=== PATIENT | female | born 1970 | race Caucasian/White ===

== ENCOUNTER 2024-06-06 13:21 | Outpatient (CLI) | payer OTHER, SELFPAY ==
--- NOTE | ~2024-06-06 | US_ITS ---
US pelvic complete w TV Ordering provider: Marj Bella APRN History: . N93.9 - Abnormal uterine and vaginal bleeding, unspecified . Comparison: None. Technique: Transabdominal and endovaginal ultrasound of the pelvis (Doppler ultrasound interrogation techniques used as needed for this exam.) FINDINGS: CERVIX: Normal. UTERUS: Measures 9.3x 4.3x 5.7 cm in length which is within normal limits and is anteverted. Smaller fibroid measuring 1 x 1 x 0.9 cm is seen posteriorly. Another one seen anteriorly measuring 0.7 x 0. 5 x 0.9 cm. ENDOMETRIUM: Normal in thickness measuring 6 mm. No endometrial masses, cysts or fluid. CUL DE SAC: No free fluid. RIGHT OVARY: Normal in size measuring 2.9x 2.7x 3.5 cm. Normal echotexture. Doppler vascular flow pre sent. Multiple follicles with the largest measuring 2 cm. LEFT OVARY: Normal in size measuring 1.8x 2.4x 2.8 cm. Normal echotexture. Doppler vascular flow pres ent. 0.9 cm follicle is noted. ADNEXA: Normal. No mass. IMPRESSION: Otherwise, normal pelvic ultrasound. Reviewed, dictated and finalized at location A.
== END 2024-06-06 13:22 | disposition home or self-care (01) ==
LOC: MICIMG 13:21
PROVIDERS: PCP Nurse Practitioner Family; Visit Provider Nurse Practitioner Family
DX: N93.9 Abnormal uterine and vaginal bleeding, unspecified (principal)
CPT/HCPCS: 76830; 76856

== ENCOUNTER 2024-08-12 07:10 | Outpatient (CLI) | payer OTHER, SELFPAY ==
[2024-08-12 08:16] LABS: Hematocrit 35.8 % (37.0-47.0); Hemoglobin 11.6 g/dL (12.0-15.0)
== END 2024-08-12 07:11 | disposition home or self-care (01) ==
LOC: ANHLAB 07:12
PROVIDERS: Referring Provider Anesthesiology; Visit Provider Obstetrics & Gynecology
DX: N92.0 Excessive and frequent menstruation with regular cycle (principal); N93.9 Abnormal uterine and vaginal bleeding, unspecified
CPT/HCPCS: 36415; 85014; 85018; 86850; 86900; 86901

== ENCOUNTER 2024-08-17 00:52 | Day surgery (SDC) | payer OTHER, SELFPAY ==
[2024-08-11 08:20] VITALS: BMI 21.6
--- NOTE | 2024-08-11 08:29 | PC.NURSE ---
Report to the Outpatient Waiting Room, entrance under the green pavilion located off [facility], at time _0600_ on date _[id number]_. Planned Procedure Time: _0730_.? Time changes happen often and if your time is changed the preop area will call you the afternoon before. - You and your visitor will be asked to self-screen and do not enter if you have any COVID symptoms. Please call surgeon if you need to reschedule. - A mask is optional within the hospital at this time. Patients may have clear liquids (water, carbonated beverages, clear teas, apple juice) until 3 hours prior to surgery with a maximum of 20 ounces. - No food from midnight until time of surgery and no smoking, or chewing tobacco (or any form of nicotine). No chewing gum, candy or mints. Take only the following medications with a SIP of water on the morning of surgery: ___Flonase if needed.___ DO NOT STOP ANY OF YOUR OTHER PRESCRIPTION MEDICATIONS PRIOR TO SURGERY EXCEPT THE FOLLOWING Hold all vitamins and supplements for 3 days per anesthesiologist. Medications to discontinue per physician ____Patient is holding Meloxicam and Ketorolac____ Date to take last iaxa__[id number]__ Please no make-up, nail thai, hairspray, perfume, deodorant, or body powder the day of surgery.? No jewelry (including any body piercings) or valuables the day of surgery, leave them at home.? Please take a shower or bath the night before, or the morning of, surgery with an antibacterial soap.? Wear comfortable, loose fitting clothing.? - Jewelry must be removed prior to entering the operating room.? Rings and piercings that are not removed may be cut off. - The hospital will not accept responsibility for valuables.? - Please leave all valuables, including medications, at home the day of surgery. If you are going home after surgery, a licensed lyft driver must drive you home.? - NO public transportation without another adult if you receive anesthesia. - We recommend that an adult stay with you for 24 hours following discharge. - We also recommend that you do not drive, make important decision, drink alcoholic beverages, or take any drugs that were not prescribed by your health care provider for at least 24 hours after your discharge time. Follow any additional instructions given to you from your surgeon. Telephone instructions given to __Tina__and asked if any additional questions and then verbalized understanding. Patient advised to call surgeon office or pre surgery nurse liaison [phone] if any additional questions.
[2024-08-17] VITALS (12 sets, daily range): BP systolic 80–108; BP diastolic 45–75; PULSE 61–74; RESP 12–20; TEMP 36.1–36.5; O2SAT 98–100
--- OUTSIDE RECORDS SUMMARY | 2024-08-17 00:54 | XMS_ITS | Encounter Summary ---
Author Organization [employer] Address [address] [place] [address] Care Team Providers Care Cementer Helper Name Role Phone Crystal Noguera MD Primary Care Provider [phone] Encounter Details Date Type Department Care Team (Late st Contact Info) Description 04/06/2003 Outpatient Historical [facility] [address] [place] [address] Crystal Nogurea MD [address] [place] [phone] Social History Tobacco Use Types Packs/Day Years Used Date Smoking Tobacco: Never Assessed Comments Unknown Sex and Gender Information Value Date Recorded Sex Assigned at Not on file 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
--- OUTSIDE RECORDS SUMMARY | 2024-08-17 00:54 | XMS_ITS | Encounter Summary ---
Author Organization [employer] Address [address] [place] [address] Care Team Providers Care Certified Driver Examiner Name Role Phone Crystal Noguera MD Primary Care Provider [phone] Encounter Details Date Type Department Care Team (Latest Contact Info) Description 09/12/2003 Outpatient [facility] [address] [place] [address] Crystal Noguera MD [address] [place] [phone] ABDOMINAL PAIN UNSPEC SITE (Primary Dx) Social History Tobacco Use Types Packs/Day Years Used Date Smoking Tobacco: Never Assessed Comments Unknown Sex and Gender Information Value Date Recorded Sex Assigned at Not on file 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
--- OUTSIDE RECORDS SUMMARY | 2024-08-17 00:54 | XMS_ITS | Encounter Summary ---
Author Organization [facility] Address [address] [place] [address] Care Team Providers Care Numerical Control Router Operator Name Role Phone Vito Choi MD Primary Care Provide r Tracy Wagoner DNP Unavailable [phone] Aleksandar Coffey MD Unavailable [phone] Reason for Referral * Consultation (Urgent) - Closed Specialty Diagnoses / Procedures Referred By Concha ladd Referred To Contact Gynecology Diagnoses Menorrhagia with irregular cycle Vito Choi MD [address] [place] [address] Phone: tel: fax: [facility] [address] [address], [address] Office [address] [place] [address] Phone: tel: fax: Referral ID Status Reason Start Date Expiration Date V isits Requested Visits Authorized [id number] Closed Specialty Services Required 05/30/2024 06/29/2025 1 1 Question Answer Please select the performing region: [facility] [[id number]] Please select the performing department: [facility] [[id number]] # of visits: 1 Encounter Details Date Type Department Care Team (Late st Contact Info) Description 05/30/2024 Nurse Triage [facility] [address] [place] [address] [place] [address] [facility] [address] [place] [address] Menorrhagia with irregular cycle (Primary Dx) Social History Tobacco Use Types Packs/Day Years Used Date Smoking Tobacco: Never Smokeless Tobacco: Never Alcohol Use Standard Drinks/Week Comments Not Currently 0 (1 standard drink = 0.6 oz pur e alcohol) AUDIT-C Answer Date Recorded Q1: How often do you have a drink containing alc ohol? Monthly or less 05/29/2020 Q2: How many drinks containi ng alcohol do you have on a typical day when you are drinking? 1 or 2 05/29/2020 Frequency of Binge Drinking Not on file 05/17 PHQ-2 Answer Date Recorded PHQ-2 Total Score (If total score is 3 or more points, staff should administer the PHQ-9) 0 04/21/2024 Personal Safety Answer Date Recorded Have you ever been in or are you currently in a harmful physical or emotional relationship or is someone making you feel afraid or unsafe? Denies 04/29/2024 Comments No Sex and Gender Information Value Date Recorded Sex Assigned at Not on file Legal Sex Female 11:59 AM LINE TENDER FLAKEBOARD Gender Identity Not on file Sexual Orientation Not on file documented as of this encounter Miscellaneous Notes * Telephone Encounter - Peg Mattson MA - 05/30/2024 4:22 PM CDT Pt informed * Telephone Encounter - Vito Choi MD - 05/30/2024 3:23 PM CDT Let her know I placed a referral to our Gynecology Clinic here at [facility]. If they can not get her in with a suitable timeframe I recommend she consult with her insurance company to find out what other gynecology providers are in network. Then she will simply have to start making calls to see if anywhere else can get her in sooner. * Telephone Encounter - Lizy Ortiz RN - 05/30/2024 10:06 AM CDT Joi Ashley reports ongoing menses for atleast the last 15 days. Flow is heavy off and on. Pt is very concerned as her mother had to have a hysterectomy very early on related to similar issues with prolonged menses. Pt is requesting REAL ESTATE LEGAL ASSISTANT referral lisette and for one that can get her in sooner rather than delay as she is very worried.Pt cont to have increased tiredness and dizziness. DISPO: Call PCP now Reviewed care options with Joi Ashley requesting PCP send referral via [facility] or call back at [phone] for further assist. Reason for Disposition [1] Follow-up call from patient regarding patient's clinical status AND [2] information urgent Protocols used: PCP Call - No [id number] * Telephone Encounter - Lizy Ortiz RN - 05/30/2024 9:56 AM CDT Regarding: menstrual cycle ----- Message from May sent at 05/30/2024 9:20 AM CDT ----- Symptom Based Call Chief Complaint(s): menstrual cycle Duration: 15 days What type of symptom(s) is the patient experiencing? Non-Emergent. Is this a new or reoccurring symptom(s)? new What have you tried to help your symptom(s)? Nothing Why was appointment not scheduled? Requesting advice from clinical stationary steam engineer. Additional Comments: normal cramps and she does have blood clots present Does message need to be routed? Yes-Action Needed documented in this encounter Plan of Treatment Upcoming Encounters Date Type Department Care Team (Late st Contact Info) Description 01/11/2025 8:30 AM LINE TENDER FLAKEBOARD Hospital Encounter [facility] [address] [place] [address] [address], [address] [place] [address] 01/11/2025 8:30 AM LINE TENDER FLAKEBOARD - 01/11/2025 9:00 AM LINE TENDER FLAKEBOARD Surgery [address] [address] [address], [address] [place] [address] COLONOSCOPY Scheduled Procedures Name Priority Associated Diagnoses Date/Ti me COLONOSCOPY Encounter for screening colonoscopy 01/11/2025 8:30 AM LINE TENDER FLAKEBOARD Scheduled Referrals Name Type Priority Associated Diagnoses Order Schedule Ambulatory referral to Gynecology Outpatient Referral Urgent Menorrhagia with irregular cycle 1 Occurrences starting 05/30/2024 until 05/30/2025 documented as of this encounter Visit Diagnoses Diagnosis Encounter for screening colonoscopy- Primary Menorrhagia with irregular cycle- Primary Encounter for screening colonoscopy documented in this encounter Additional Health Concerns Infection Onset Date Last Indicated Resolved Time COVID: Suspected 07/21/2024 07/21/2024 07/21/2024 3:42 PM CDT documented as of this encounter Care Teams Numerical Control Router Operator Relationship Specialty [place] [id number] [address] PCP - General Family Medicine 12/13/19 Tracy Wagoner DNP [address] [facility] [address] [place] [address] Nurse Practitioner Neurology 03/06/20 [place] [address] [address] Consulting Physician Otolaryngology 04/07/22 documented as of this encounter
--- OUTSIDE RECORDS SUMMARY | 2024-08-17 00:54 | XMS_ITS | Clinical Summary ---
Author Organization [facility] Address [address] Nuñez: [place] [address] Care Team Providers Care City Sanitarian Name Role Phone Crystal Noguera MD Primary Care Provider [phone] Allergies Active Allergy Reactions Criticality Noted Date Comments Sulfa (Sulfonamide Antibiotics) Rash Low 07/18 Medications metFORMIN (GLUCOPHAGE) 500 mg tablet take one tablet by mouth twice daily 60 Tablet 2 06/05/2022 8:43 AM CDT 3 Active ergocalciferol (Vitamin D2) 50,000 unit capsule Take 1 Capsule (50,000 Units) by mouth every 7 days. 4 Capsule 1 07/04/2022 12:23 PM CDT 3 Active tirzepatide (Mounjaro) 5 mg/0.5 mL Pen Injector Inject 5 mg by subcutaneous injection every 7 days. 2 mL 09/04/2022 11:26 AM CDT 3 Active tirzepatide (Mounjaro) 7.5 mg/0.5 mL Pen Injector Inject 0.5 mL (7.5 mg) by subcutaneous injection every 7 days. 2 mL 3 04/17/2023 3:21 PM INTEGRATED MARKETING SPECIALIST 3 Active tirzepatide (Mounjaro) 5 mg/0.5 mL Pen Injector Inject 5 mg by subcutaneous injection every 7 days. 2 mL 3 01/04/2024 1:52 PM INTEGRATED MARKETING SPECIALIST 4 Active tirzepatide (Mounjaro) 5 mg/0.5 mL Pen Injector Inject 5 mg by subcutaneous injection every 7 days. 2 mL 3 11/10/2023 11:29 AM CDT 4 Active tirzepatide (Mounjaro) 5 mg/0.5 mL Pen Injector Inject 0.5 mL (5 mg) by subcutaneous injection every 7 days. 2 mL 3 04/26/2024 11:56 AM CDT 4 Active tirzepatide (Mounjaro) 5 mg/0.5 mL Pen Injector Inject 0.5 mL (5 mg) by subcutaneous injection every 7 days. 2 mL 3 05/19/2024 9:31 AM CDT 5 Active Encounters Date Type Department Care Team Description 08/02/2024 External Device Data [facility] ABSTRACTION Provider, Abstract 07/07/2024 External Device Data [facility] ABSTRACTION Provider, Abstract 07/06/2024 External Device Data [facility] ABSTRACTION Provider, Abstract 07/05/2024 External Device Data [facility] ABSTRACTION Provider, Abstract 05/31/2024 External Device Data [facility] ABSTRACTION Provider, Abstract from Last 3 Months Social History Tobacco Use Types Packs/Day Years Used Date Smoking Tobacco: Never Assessed Comments Unknown Sex and Gender Information Value Date Recorded Sex Assigned at Not on file Legal Sex Female 4:58 AM INTEGRATED MARKETING SPECIALIST Gender Identity Not on file Sexual Orientation Not on file Plan of Treatment Health Maintenance Due Date Last Done Comments DTAP/TDAP/TD VACCINES (1 - Tdap) 07/09/1991 HEPATITIS B VACCINES (1 of 3 - 19+ 3-dose series) 06/17 HPV/Cotest (21-29) 1993 CERVICAL CANCER SCREENING 2002 HPV/Cotest (30-65) 2002 PAP SMEAR 2002 BREAST CANCER SCREENING 2012 COLORECTAL SCREENING 2017 Colorectal Cancer Screening 2017 FIT-DNA Q 3 years 2017 FIT/FOBT Q 1 year 2017 Flex Sig/CT Colonography Q 5 years 2017 ZOSTER VACCINE (1 of 2) 2022 INFLUENZA VACCINE (#1) 2023 Insurance RX [facility] [employer] Commercial [[id number] Care Teams City Sanitarian Relationship Specialty Start Date End Date Crystal Noguera MD [address] [place] [address] PCP - General 09/12/03
--- OUTSIDE RECORDS SUMMARY | 2024-08-17 00:54 | XMS_ITS | Referral Summary ---
Author Organization [facility] Address [address] [place] [address] Care Team Providers Care Dividend Deposit Entry Clerk Name Role Phone Vito Choi MD Primary Care Provide r Tracy Wagoner DNP Unavailable [phone] Aleksandar Coffey MD Unavailable Encounters Date Type Department Care Team Description 07/21/2024 3:15 PM CDT Office Visit [facility] [place] [address] [place] [address] Iris Koenig, YANY Acute nasopharyngitis (Primary Dx) 06/27/2024 Orders Only [facility] Orthopedics and Sports Medicine at [address] [place] [address] Kaylee Lopez PA 06/24/2024 Telephone [facility] [address] [place] [address] Olivia Rivers 06/09/2024 Results Follow[facility]Up [facility] at [address] [place] [address] Vito Choi MD CBC with auto differential, Comprehensive metabolic panel, Lipid panel, Additional followed-up results: 11 06/09/2024 3:15 PM CDT Office Visit [facility] Orthopedics and Sports Medicine at [address] [address] Zia Tolbert MD Adhesive capsulitis of left shoulder (Primary Dx) 06/06/2024 9:08 AM CDT - 06/06/2024 11:59 PM CDT Hospital Encounter [address] [address] Disorder of left rotator cuff Discharge Disposition: Discharge to home or self care 05/30/2024 Nurse Triage Family [facility] at [address] [place] [address] Vito Choi MD Menorrhagia with irregular cycle (Primary Dx) 05/30/2024 3:30 PM CDT Office Visit [facility] Orthopedics and Sports Medicine at [address] [address] Zia Tolbert MD Disorder of left rotator cuff (Primary Dx) 05/26/2024 Telephone [facility] Gastroenterology at [address] [place] [address] Armani Troncoso DO 05/24/2024 Telephone [facility] Gastroenterology at [address] [place] [address] Laci Aleman MD 05/20/2024 Telephone Family Care at [address] [address] Vito Choi MD Call Back 05/19/2024 11:40 AM CDT Lab [address] [address] Dizziness; Pure hypercholesterolemia; Anemia, unspecified type; Situational anxiety 05/19/2024 8:00 AM CDT Office Visit Family Care at [address] [address] Vito Choi MD Annual physical exam (Primary Dx); Colon cancer screening; Dizziness; Migraine with aura and without status migrainosus, not intractable; Seasonal allergies; Gastroesophageal reflux disease, unspecified whether esophagitis present; Situational anxiety; Pure hypercholesterolemia; Anemia, unspecified type; Abnormality of lung on chest x-ray from Last 3 Months Allergies Active Allergy Reactions Criticality Noted Date Comments Sulfa (Sulfonamide Antibiotics) Rash Medium Itch, redness, rash Medications cetirizine (ZyrTEC) 10 mg tablet Take 1 tablet (10 mg total) by mouth daily 2 018 Active fluticasone (FLONASE) 50 mcg/actuation nasal spray Administer 1 spray into each nostril daily Active rizatriptan MEDICAL RADIATION DOSIMETRIST (MAXALT-MEDICAL RADIATION DOSIMETRIST) 10 mg disintegrating tabletIndications: Migraine Take 1 tablet (10 mg total) by mouth once as needed for migraine May repeat in 2 hours if unresolved. Do not exceed 30 mg in 24 hours. 27 tablet 3 023 Active hydrOXYzine (ATARAX) 25 mg tablet Take 1 tablet (25 mg total) by mouth every 8 (eight) hours as needed for anxiety 90 tablet 2 024 Active Mounjaro 5 mg/0.5 mL pen injector Inject 1 mL (10 mg total) under the skin once a week 023 Active galcanezumab-gnlm (Emgality Pen) 120 mg/mL pen injectorIndication s:Migraine with aura and without status migrainosus, not intractable INJECT 120 MG UNDER THE SKIN EVERY 30 (THIRTY) DAYS 1 mL 11 024 Active metoclopramide (REGLAN) 10 mg tablet Take 1 tablet (10 mg total) by mouth 2 (two) times a day as needed (dizziness/he adache) for up to 20 doses 20 tablet 025 Active acetaminophen (TYLENOL) 500 mg tablet Take 1 tablet (500 mg total) by mouth every 6 (six) hours as needed for pain 30 tablet 1 025 Active PHENobarbitaL 32.4 mg tablet 5 025 Active ferrous sulfate 325 mg (65 mg of elemental iron) tabletIndications: Iron Deficiency Anemia Take 1 tablet (325 mg total) by mouth daily with breakfast 90 tablet 3 025 Active cholecalciferol (VITAMIN D-3) 50,000 unit capsule Take 1 capsule (50,000 Units total) by mouth once a week 12 capsule 3 Active meloxicam (MOBIC) 15 mg tablet Take 1 tablet (15 mg total) by mouth daily Take with food 30 tablet Active methylPREDNISolone (MEDROL DOSEPACK) 4 mg DosepackIndication s:Acute nasopharyngitis Take as directed on package 1 packet Active montelukast (SINGULAIR) 10 mg tabletIndications: Acute nasopharyngitis Take 1 tablet (10 mg total) by mouth nightly 30 tablet 025 2025 Active methylPREDNISolone (Medrol, Anjum,) 4 mg Dosepack Take as directed on package 1 packet 025 2024 Discontinued Active Problems Problem Noted Date Diagnosed Date Encounter for screening colonoscopy 05/26/2024 Seasonal allergies 05/19/2024 Assessment & Plan (05/19/2024 1:03 PM CDT): Controlled/stable, continue current management Continue Zyrtec and Flonase for symptom management Also hydroxyzine p.r.n. Anemia 05/19/2024 Assessment & Plan (05/19/2024 1:03 PM CDT): Patient notes a baseline anemia for many years However, during that recent ED visit there was progression of this anemia with a hemoglobin of 9.6 I recommend we repeat the level If anemia is persistent she may need more aggressive iron replacement as it appears to be an iron-deficiency anemia - possible IV iron We will also await the results of the colonoscopy to see if there is any lower GI bleeding Upper endoscopy may also be necessary in the future to rule out upper GI bleeding Vestibular migraine 04/07/2022 Imbalance 04/01/2022 Pure hypercholesterolemia 01/02/2022 Assessment & Plan (05/19/2024 1:02 PM CDT): The 10-year ASCVD risk score (Kailee VARGHESE, et al., 2019) is: 0.9% ASCVD risk remains extremely low Continue monitoring of lipid panel and consider statin therapy if it ever goes above 10% Dizziness 09/06/2020 Assessment & Plan (05/19/2024 1:03 PM CDT): Although dizziness has a broad differential diagnosis, I reassured the patient that all of our workup thus far does not indicate a primary cardiac issue or intracranial problem Vestibular dysfunction could also be present, although the patient did see ENT in the past and was not noted to have Meniere's disease or other vestibular issues At this point the leading diagnoses are migraine variants, anxiety or less likely autonomic dysfunction such as POTS We will repeat some lab work including hormonal testing The patient could be perimenopausal which could be contributing to some of the symptoms Otherwise I recommend the patient continue to follow-up with Neurology and consider a second opinion from a neurologist with more expertise in treating migraines such as the [facility] headache clinic Additional consultation with Cardiology or ENT would also be reasonable Situational anxiety 09/06/2020 Assessment & Plan (05/19/2024 1:03 PM CDT): Dizziness could be psychosomatic from anxiety Continue hydroxyzine p.r.n. We could also consider cautious use of benzodiazepine therapy prn, although I would prefer to avoid this if possible Post-operative state 06/13/2020 GERD (gastroesophageal reflux disease) Assessment & Plan (05/19/2024 1:03 PM CDT): Controlled/stable, continue current management Assessment & Plan (06/22/2019 1:14 PM CDT): Pt was switched from omeprazole to pantoprazole and doing really well on this. No longer having regurgitation or belching. Continue this regimen. Will re-eval in about 6 months and consider trying to reduce dose or stop this medication if possible. Pt working on losing weight and avoiding things that will cause GERD. Migraine with aura and witho ut status migrainosus, not intractable 11/16/2017 Assessment & Plan (05/19/2024 1:03 PM CDT): Controlled/stable, continue current management Follow up with Neurology Continue NSAID therapy, Reglan p.r.n. + Emgality for maintenance and Maxalt p.r.n. for abortive therapy Resolved Problems Problem Noted Date Diagnosed Date Resolved Date Unilateral inguinal hernia w ithout obstruction or gangrene 05/16/2020 09/06/2020 Overview (05/16/2020): Added automatically from request for surgery [id number] Belching 05/03/2019 06/22/2019 Assessment & Plan (06/22/2019 1:14 PM CDT): Resolved with pantoprazole daily. Assessment & Plan (05/03/2019 2:41 PM CDT): Pt says this has been going on for years. Pt currently on omeprazole daily. She thinks it may help with regurgitation but isn't sure if it helps with belching. Will try switching to pantoprazole daily and have her use gas-x as needed before and/or after meals. We discussed diet and she was given handout on things to avoid the help prevent less belching/gas. Regurgitation of stomach contents 05/03/2019 09/06/2020 Assessment & Plan (05/03/2019 2:38 PM CDT): Occasionally occurs when she belches. She denies N/V. Chronic idiopathic constipation 05/03/2019 09/06/2020 Assessment & Plan (06/22/2019 1:15 PM CDT): Pt says when she has her menstrual cycle, she doesn't have any issues with constipation. When not on her menstrual cycle, she uses Miralax daily and this helps have normal, daily BM's. Continue current regimen. Assessment & Plan (05/03/2019 2:41 PM CDT): Pt says she goes every 3-4 days. She has had issues with constipation all my life. She uses Miralax prn usually after about 3 or 4 days of no BM. Advised patient to use about every other day for constipation as this can cause more issues with gas. Immunizations Immunization Administration Dates Next Due Influenza, Quadrivalent, Spl it, Intramuscular 01/25/2019 Influenza, Quadrivalent, Spl it, Preservative Free, Intramuscular 12/04/2021,03/10/2018 Influenza, Unspecified 09/17/2023(Deferr ed: Patient Refused),05/19/2023(Deferred: Patient Refused),11/17/2019 Pfizer SARS-CoV-2 Monovalent Vaccination (12+ Yrs) PURPLE 06/04/2020,05/12/2020 Tdap 03/10/2018 Social History Tobacco Use Types Packs/Day Years Used Date Smoking Tobacco: Never Smokeless Tobacco: Never Tobacco Cessation:Counseling Given: No Alcohol Use Standard Drinks/Week Comments Not Currently [...] on file Legal Sex Female 11:59 AM SPORTS COMMENTATOR Gender Identity Not on file Sexual Orientation Not on file Last Filed Vital Signs Vital Sign Reading Time Taken Comments Blood Pressure 100/60 07/21/2024 3:19 PM CDT Pulse 70 07/21/2024 3:19 PM CDT Temperature 36.6 C (97.8 F) 07/21/2024 3:19 PM CDT Respiratory Rate 16 07/21/2024 3:19 PM CDT Oxygen Saturation 99% 07/21/2024 3:19 PM CDT Inhaled Oxygen Concentration - - Weight 50.8 kg (112 lb) 07/21/2024 3:19 PM CDT Height 152.4 cm (5') 07/21/2024 3:19 PM CDT Body Mass Index 21.87 07/21/2024 3:19 PM CDT Plan of Treatment Upcoming Encounters Date Type Department Care Team (Late st Contact Info) Description 01/11/2025 8:30 AM SPORTS COMMENTATOR Hospital Encounter [facility] [place] [address] [place] [address] Armani Troncoso, [address] [place] [address] 01/11/2025 8:30 AM SPORTS COMMENTATOR - 01/11/2025 9:00 AM SPORTS COMMENTATOR Surgery [address] [address] Armani Troncoso, [address] [place] [address] COLONOSCOPY Scheduled Procedures Name Priority Associated Diagnoses Date/Ti me COLONOSCOPY Encounter for screening colonoscopy 01/11/2025 8:30 AM SPORTS COMMENTATOR Medical Devices Implanted Type Area Box Stacker Device Identifier Shelf Expiration Date Model / Serial / Lot [employer]/C R Bard [id number] Mesh Surg 3dmax [id number] Left Mid Large Inguinal Hernia - [id number] Implanted:Qty : 1 on 05/29/2020 by Dylan Moore MD at [facility] Left: Inguinal [employer] [id number] 01/13/2022 [id number] / / [id number] Procedures Procedure Name Priority Date/Time Associated Diagnosis Comments COVID-19 POC Routine 07/21/2024 3:41 PM CDT Acute nasopharyngitis POCT INFLUENZA A/B Routine 07/21/2024 3:40 PM CDT Acute nasopharyngitis MRI SHOULDER LEFT WO CONTRAST Schedule Routine, Read Routine (OP Routine) 06/06/2024 10:00 AM CDT Disorder of left rotator cuff EGFR Routine 05/19/2024 11:44 AM CDT Dizziness DIFFERENTIAL AUTO Routine 05/19/2024 11:44 AM CDT Dizziness PROLACTIN Routine 05/19/2024 11:44 AM CDT Dizziness PROGESTERONE Routine 05/19/2024 11:44 AM CDT Dizziness LUTEINIZING HORMONE (LH) Routine 05/19/2024 11:44 AM CDT Dizziness FOLLICLE STIMULATING HORMONE Routine 05/19/2024 11:44 AM CDT Dizziness ESTRADIOL Routine 05/19/2024 11:44 AM CDT Dizziness THYROID FUNCTION CASCADE Routine 05/19/2024 11:44 AM CDT Dizziness Situational anxiety Pure hypercholesterolemia Anemia, unspecified type IRON PROFILE W/ IBC Routine 05/19/2024 11:44 AM CDT Anemia, unspecified type VITAMIN B12 Routine 05/19/2024 11:44 AM CDT Dizziness Anemia, unspecified type VITAMIN D 25 HYDROXY Routine 05/19/2024 11:44 AM CDT Dizziness Anemia, unspecified type LIPID PANEL Routine 05/19/2024 11:44 AM CDT Pure hypercholesterolemia COMPREHENSIVE METABOLIC PANEL Routine 05/19/2024 11:44 AM CDT Dizziness CBC WITH AUTO DIFFERENTIAL Routine 05/19/2024 11:44 AM CDT Dizziness SCREENING MAMMOGRAM 2D BILATERAL Schedule Routine, Read Routine (OP Routine) 12/31/2023 PAP AND HIGH RISK HPV, REFLEX TO GENOTYPING Routine 09/06/2020 Cervical cancer screening from Last 3 Months or Most Recently Relevant to Health Maintenance Results * COVID-19 POC (07/21/2024 3:41 PM CDT) COVID-19 Ag POC (BD Veritor) Presumptive Negative Presumptive Negative, Invalid [facility] Nasal 07/21/2024 3:41 PM CDT us Iris Koenig NP POINT OF CARE TEST ORDERABLE S Final Result [facility] [address] [place] [address], [facility] * POCT influenza A/B (07/21/2024 3:40 PM CDT) Rapid Influenza A Ag Negative Negative, Invalid Rapid Influenza B Ag Negative Negative, Invalid Nasal 07/21/2024 3:40 PM CDT Iris Koenig NP POINT OF CARE TEST ORDERABLE S Final Result * MRI Shoulder Left WO Contrast (06/06/2024 10:00 AM CDT) Anatomical Region Laterality Modality Upper Extremities Left Magnetic Reson ance 06/07/2024 2:04 PM CDT Narrative 06/07/2024 2:09 PM CDT EXAM DESCRIPTION: MRI SHOULDER LEFT WO CONTRAST REASON FOR STUDY: Pt began having left shoulder pain 2-3 months ago. No known injury or trauma. TECHNIQUE: Multiplanar, multisequence MRI of the left shoulder was performed without contrast. COMPARISON: Radiographs 04/25/2024 FINDINGS: There is a type 2 acromion. The coracoacromial ligament is mildly thickened. There is mild acromioclavicular joint osteoarthritis. There is mild subacromial subdeltoid bursitis. The rotator cuff muscle bulk is normal. The subscapularis is intact. The biceps tendon is located within the bicipital groove. The supraspinatus and infraspinatus cuff tendons are intact without evidence of a discrete tear. On this non arthrographic evaluation, the bicipital anchor and superior glenoid labrum are intact. The labrum below the equator is normal. Mildly edematous inferior glenohumeral joint capsule is present with inferior and posterior pericapsular edema. Mild glenohumeral joint chondromalacia. Small shoulder effusion. There are no loose bodies. Breast prosthesis noted. IMPRESSION: Mildly edematous inferior glenohumeral joint capsule with inferior and posterior pericapsular edema. These findings can be associated with adhesive capsulitis. Intact left rotator cuff and glenoid labrum. Mild left acromioclavicular joint osteoarthritis with mild subacromial subdeltoid bursitis. Mild left glenohumeral joint chondromalacia with a small shoulder effusion. THIS IS AN ELECTRONICALLY VERIFIED FINAL REPORT 06/07/2024 2:09 PM - Electronically signed by Dago Drummond M.D. MF: [email or web address] Report ID: [id number] Reading Location: [id number] Procedure Note Dago Drummond MD - 06/07/2024 EXAM DESCRIPTION: MRI SHOULDER LEFT WO CONTRAST REASON FOR STUDY: Pt began having left shoulder pain 2-3 months ago. No known injury ortrauma. TECHNIQUE: Multiplanar, multisequence MRI of the left shoulder wasperformed without contrast. COMPARISON: Radiographs 04/25/2024 FINDINGS: There is a type 2 acromion. The coracoacromial ligament is mildlythickened. There is mild acromioclavicular joint osteoarthritis. There is mild subacromial subdeltoid bursitis. The rotator cuff muscle bulk is normal. The subscapularis is intact. The biceps tendon is located within the bicipital groove. The supraspinatusand infraspinatus cuff tendons are intact without evidence of a discretetear. On this non arthrographic evaluation, the bicipital anchor and superior glenoid labrum are intact. The labrum below the equator is normal. Mildly edematous inferior glenohumeral joint capsule is present with inferior and posterior pericapsular edema. Mild glenohumeral joint chondromalacia.Small shoulder effusion. There are no loose bodies. Breast prosthesis noted. IMPRESSION: Mildly edematous inferior glenohumeral joint capsule with inferior and posterior pericapsular edema. These findings can be associated withadhesive capsulitis. Intact left rotator cuff and glenoid labrum. Mild left acromioclavicular joint osteoarthritis with mild subacromial subdeltoid bursitis. Mild left glenohumeral joint chondromalacia with a small shouldereffusion. THIS IS AN ELECTRONICALLY VERIFIED FINAL REPORT 06/07/2024 2:09 PM - Electronically signed by Dago Drummond M.D. MF: [email or web address] Report ID: [id number] Reading Location: [place] [address] us Zia Tolbert MD IMG MRI PROCEDURES Final Resu lt * eGFR (05/19/2024 11:44 AM CDT) eGFR >90 >=60 mL/min/1. 73 m2 Comment: Interpretive Data Reference Interval Normal >/= 90 mL/min/1.73m2 Mildly decreased* 60 - 89 mL/min/1.73m2 Mildly to moderately decreased 45 - 59 mL/min/1.73m2 Moderately to severely decreased 30 - 44 mL/min/1.73m2 Severely decreased 15 - 29 mL/min/1.73m2 Kidney Failure < 15 mL/min/1.73m2 *Relative to young adult level Estimated glomerular filtration rate is determined by the 2020 CKD-EPI equation recommended by the National Kidney Foundation (A Unifying Approach to GFR Estimation: Recommendations of the NKF-ASK Task Force on Reassessing the Inclusion of Race in Diagnosing Kidney Disease, JASN 2020). The CKD-EPI equation should not be used for patients with unstable renal function and has not been validated in children and those over 70. Current interpretive data was last reviewed 2020. Blood 05/19/2024 11:4 4 AM CDT 05/19/2024 12:42 PM CDT us Vito Choi MD LAB BLOOD ORDERABLES Final Result [facility] ([place]) 1 [facility] Department of Laboratories [place], [place] [id number] * Differential, auto (05/19/2024 11:44 AM CDT) Neutrophil abs 2.88 1.50 - 6.50 K/cumm Imm gran abs 0.01 0.00 - 0.10 K/cumm [facility] ([place]) Lymphocyte abs 1.55 0.80 - 3.30 K/cumm [facility] ([place]) Monocyte abs 0.38 0.20 - 0.80 K/cumm [facility] ([place]) Eosinophil abs 0.07 0.00 - 0.50 K/cumm [facility] ([place]) Basophil abs 0.03 0.00 - 0.10 K/cumm [facility] ([place]) Neutrophil pct 58.6 % [facility] ([place]) Comment: Interpretive Data Percent cell count reference ranges are not reported, since discordance with absolute values may lead to misinterpretation of CBC data. Current Interpretive Data was last revised on 2017. Imm gran pct 0.2 % [facility] ([place]) Comment: Interpretive Data Percent cell count reference ranges are not reported, since discordance with absolute values may lead to misinterpretation of CBC data. Current Interpretive Data was last revised on 2017. Lymphocyte pct 31.5 % [facility] ([place]) Comment: Interpretive Data Percent cell count reference ranges are not reported, since discordance with absolute values may lead to misinterpretation of CBC data. Current Interpretive Data was last revised on 2017. Monocyte pct 7.7 % [facility] ([place]) Comment: Interpretive Data Percent cell count reference ranges are not reported, since discordance with absolute values may lead to misinterpretation of CBC data. Current Interpretive Data was last revised on 2017. Eosinophil pct 1.4 % [facility] ([place]) Comment: Interpretive Data Percent cell count reference ranges are not reported, since discordance with absolute values may lead to misinterpretation of CBC data. Current Interpretive Data was last revised on 2017. Basophil pct 0.6 % [facility] ([place]) Comment: Interpretive Data Percent cell count reference ranges are not reported, since discordance with absolute values may lead to misinterpretation of CBC data. Current Interpretive Data was last revised on 2017. Blood 05/19/2024 11:4 4 AM CDT 05/19/2024 12:42 PM CDT us Vito Choi MD LAB BLOOD ORDERABLES Final Result [facility] ([place]) 1 [facility] [place] [address] * Thyroid Function [place] (05/19/2024 11:44 AM CDT) Pathologist [facility] TSH 1.57 0.30 - 4.20 mcIUnit/mL Blood 05/19/2024 11:4 4 AM CDT 05/19/2024 12:42 PM CDT us Vito Choi MD LAB BLOOD ORDERABLES Final Result [facility] ([place]) 1 [facility] [place] [address] * (ABNORMAL) Iron profile w/ IBC (05/19/2024 11:44 AM CDT) [facility] Iron 30(L) 35 - 145 mcg/dL TIBC 362 250 - 400 mcg/dL [facility] Transferrin saturation 8(L) 20 - 50 % [facility] ([place]) Blood 05/19/2024 11:4 4 AM CDT 05/19/2024 12:42 PM CDT us Vito Chio MD LAB BLOOD ORDERABLES Final Result [facility] ([place]) 1 [facility] [place] [address] * (ABNORMAL) CBC with auto differential (05/19/2024 11:44 AM CDT) Pathologist [facility] WBC 4.92 3.80 - 9.90 K/cumm Hgb 9.8(L) 11.9 - 15.5 g/dL [facility] ([place]) Hct 31.2(L) 35.6 - 45.5 % [facility] ([place]) Plt 379 150 - 400 K/cumm [facility] ([place]) MPV 9.6 9.1 - 12.3 fL [facility] ([place]) RBC 3.69(L) 3.90 - 5.20 M/cumm [facility] ([place]) MCV 84.6 81.3 - 96.4 fL [facility] ([place]) MCH 26.6(L) 27.1 - 33.3 pg [facility] ([place]) MCHC 31.4(L) 32.3 - 35.7 g/dL [facility] ([place]) RDW CV 15.1(H) 11.1 - 14.9 % [facility] ([place]) RDW SD 46.1 35.7 - 48.1 fL [facility] ([place]) NRBC abs 0.00 0.00 - 0.01 K/cumm [facility] ([place]) Blood 05/19/2024 11:4 4 AM CDT 05/19/2024 12:42 PM CDT Vito Choi MD LAB BLOOD ORDERABLES Final Result [facility] ([place]) 1 [facility] [place] [address] * (ABNORMAL) Vitamin D 25 hydroxy (05/19/2024 11:44 AM CDT) Vitamin D 25-OH 22(L) 30 - 80 ng/mL Blood 05/19/2024 11:4 4 AM CDT 05/19/2024 12:42 PM CDT Vito Choi MD LAB BLOOD ORDERABLES Final Result [facility] ([place]) 1 [facility] [employer] [place] [address] * Prolactin (05/19/2024 11:44 AM CDT) Prolactin 13.5 4.8 - 23.3 ng/mL Comment:Testing performed by : [facility], [address] [place] [address], [place]., [address] Blood 05/19/2024 11:4 4 AM CDT 05/19/2024 4:12 PM CDT Vito Choi MD LAB BLOOD ORDERABLES Final Result IVY [facility]) 1 [facility] [place] [address] * Progesterone (05/19/2024 11:44 AM CDT) Progesterone 0.18 ng/mL Comment: Interpretive Data Males: <0.15 ng/mL Females: Follicular <0.20 ng/mL Ovulation <4.1 ng/mL Luteal 4.1 - 14.5 ng/mL 1st Trimester 11.0 - 44.0 ng/mL 2nd Trimester 25.0 - 83.0 ng/mL 3rd Trimester 59.0 - 214.0 ng/mL Postmenopausal <0.13 ng/mL Current interpretive data was last revised 2021. Testing performed by: [facility], [address] [place] [address]., [id number] Blood 05/19/2024 11:4 4 AM CDT 05/19/2024 4:38 PM CDT Vito Choi MD LAB BLOOD ORDERABLES Final Result Performing Organization Address City/[facility] Co de Phone Number [facility]) 1 [place] [address] * Estradiol (05/19/2024 11:44 AM CDT) Estradiol 332.0 pg/mL Comment: Interpretive Data Males: 11 43 pg/mL Females: Premenopausal: 31 533 pg/mL Postmenopausal: < 50 pg/mL Patients treated with Fluvestrant (Faslodex) should be tested using an alternate assay such as LC-MS due to potential for cross-reactivity. Estradiol varies widely throughout the menstrual cycle. Current interpretive data was last revised 2023. Testing performed by: [facility], [address] [place] [address] [place]., [address] Blood 05/19/2024 11:4 4 AM CDT 05/19/2024 4:38 PM CDT Vito Choi MD LAB BLOOD ORDERABLES Final Result Performing Organization Address City/[facility] Co de Phone Number IVY [facility] ([place]) [address] [facility] [place] [address] * LH (05/19/2024 11:44 AM CDT) LH 2.8 IUnits/L Comment: Interpretive Data Males: Adults: 1.7 - 8.6 IUnits/L Females: Follicular: 2.4 - 12.6 IUnits/L Ovulation: 14.0 - 95.6 IUnits/L Luteal: 1.0 - 11.4 IUnits/L Postmenopausal: 7.7 - 58.5 IUnits/L Current interpretive data was last revised on 2018. Testing performed by: [facility], [address] [place]., [address] Blood 05/19/2024 11:4 4 AM CDT 05/19/2024 4:38 PM CDT Vito Choi MD LAB BLOOD ORDERABLES Final Result Performing Organization Address City/[facility] Co de Phone Number IVY [facility] ([place]) [address] [facility] [place] [address] * Follicle stimulating hormone (05/19/2024 11:44 AM CDT) FSH 3.6 IUnits/L Comment: Interpretive Data Male: Adults: 1.5 - 12.4 IUnits/L Female: Follicular: 3.5 - 12.5 IUnits/L Ovulation: 4.7 - 21.5 IUnits/L Luteal: 1.7 - 7.7 IUnits/L Postmenopausal: 25.8 - 134.8 IUnits/L Current interpretive data was last revised 2015. Testing performed by: [facility], [address] [facility], [place]., [address] Blood 05/19/2024 11:4 4 AM CDT 05/19/2024 4:38 PM CDT Vito Choi MD LAB BLOOD ORDERABLES Final Result [facility] ([place]) 1 [place] [address] * Vitamin B12 (05/19/2024 11:44 AM CDT) Vitamin B12 408 230 - 1,250 pg/mL Blood 05/19/2024 11:4 4 AM CDT 05/19/2024 12:42 PM CDT Vito Choi MD LAB BLOOD ORDERABLES Final Result Performing Organization Address City/[facility] Co de Phone Number IVY [facility] ([place]) [address] [facility] [place] [address] * (ABNORMAL) Lipid panel (05/19/2024 11:44 AM CDT) Cholesterol 216(H) 30 - 199 mg/dL Comment: Interpretive Data Ages < or = 19 years Acceptable: <170 mg/dL Borderline high: 170-199 mg/dL High: >or= 200 mg/dL Ages > or = 20 years Desirable: <200 mg/dL Borderline high: 200-239 mg/dL High: >or= 240 mg/dL Literature References: 1. Expert Panel on Integrated Guidelines for Cardiovascular Health and Risk Reduction in Children and Adolescents. Pediatrics 2011;128:S213 2. NCEP Expert Panel. Circulation 2004;110:227 Current Interpretive Data was last revised on 2017. Triglycerides 41 <=149 mg/dL [facility] ([place]) Comment: Interpretive Data Ages < or = 9 years Acceptable: <75 mg/dL Borderline high: 75-99 mg/dL High: >or= 100 mg/dL Ages 10 to 20 years Acceptable: <90 mg/dL Borderline high: 90-129 mg/dL High: >or= 130 mg/dL Ages > or = 20 years Desirable: <150 mg/dL Borderline high: 150-199 mg/dL High: 200-499 mg/dL Very high: >or= 499 mg/dL Literature References: 1. Expert Panel on Integrated Guidelines for Cardiovascular Health and Risk Reduction in Children and Adolescents. Pediatrics 2011;128:S213 2. NCEP Expert Panel. Circulation 2004;110:227 Current Interpretive Data was last revised on 2017. HDL 74 >=40 mg/dL IV[facility] ([place]) Comment: Interpretive Data Ages < or = 19 years Acceptable: >45 mg/dL Borderline low: 40-45 mg/dL Low: <40 mg/dL Ages > or = 20 years Desirable: >or= 60 mg/dL Low: <40 mg/dL Literature References: 1. Expert Panel on Integrated Guidelines for Cardiovascular Health and Risk Reduction in Children and Adolescents. Pediatrics 2011;128:S213 2. NCEP Expert Panel. Circulation 2004;110:227 Current Interpretive Data was last revised on 2017. LDL, calculated 135(H) <=129 mg/dL IVY [facility] ([place]) Comment: Interpretive Data Ages < or = 19 years Acceptable: <110 mg/dL Borderline high: 110-129 mg/dL High: >or= 130 mg/dL Ages > or = 20 years Optimal: <100 mg/dL Near optimal: 100-129 mg/dL Borderline high: 130-159 mg/dL High: >160 mg/dL Calculated using the Killian LDL-C estimating equation. This equation was implemented on 2023. Prior to this date LDL-C was estimated using the Friedewald equation. Literature References: 1. Expert Panel on Integrated Guidelines for Cardiovascular Health and Risk Reduction in Children and Adolescents. Pediatrics 2011;128:S213 2. NCEP Expert Panel. Circulation 2004;110:227 3. Killian Ruiz al. MARIEL Cardiol. 2020 June 16;5(5):540-548. doi: 10.1001/[email or web address].2020.0013 Current Interpretive Data was last revised on 2023. Non-HDL Cholesterol 142 mg/dL IVY [facility] ([place]) Comment: Interpretive Data Ages < or = 19 years Acceptable: <120 mg/dL Borderline high: 120-144 mg/dL High: >145 mg/dL Ages > or = 20 years When triglycerides are >200 mg/dL, Non-HDL cholesterol is a secondary target of therapy with treatment goals that are 30 mg/dL greater than the LDL cholesterol target. Literature References: 1. Expert Panel on Integrated Guidelines for Cardiovascular Health and Risk Reduction in Children and Adolescents. Pediatrics 2011;128:S213 2. NCEP Expert Panel. Circulation 2004;110:227 Current Interpretive Data was last revised on 2017. Chol/HDL ratio 3 [facility] ([place]) Blood 05/19/2024 11:4 4 AM CDT 05/19/2024 12:42 PM CDT us Vito Choi MD LAB BLOOD ORDERABLES Final Result [facility] ([place]) 1 [facility] [place] [address] * (ABNORMAL) Comprehensive metabolic panel (05/19/2024 11:44 AM CDT) Sodium 137 135 - 145 mmol/L Potassium, pl 4.1 3.3 - 4.9 mmol/L [facility] ([place]) Chloride 103 97 - 110 mmol/L [facility] ([place]) CO2 24 22 - 32 mmol/L [facility] ([place]) Anion gap 10 2 - 15 mmol/L [facility] ([place]) BUN 20 6 - 25 mg/dL [facility] ([place]) Creatinine 0.54(L) 0.60 - 1.10 mg/dL [facility] ([place] Glucose 80 70 - 199 mg/dL [facility] ([place]) Comment: Interpretive Data Fasting glucose >/= 126 mg/dl is diagnostic for diabetes. Fasting is defined as no caloric intake for at least 8 hours. Fasting glucose between 100 mg/dl to 125 mg/dl is diagnostic of prediabetes. In a patient with classic symptoms of hyperglycemia or hyperglycemic crisis, a random glucose >/= 200 mg/dl is diagnostic for diabetes. In the absence of unequivocal hyperglycemia, results should be confirmed by repeat testing. The classification and Diagnosis of Diabetes Diabetes Care 2021; 46: S19-S40. Current interpretive data was last revised 2022. Calcium 9.3 8.5 - 10.3 mg/dL [facility] ([place]) Bilirubin, total 0.3 0.1 - 1.2 mg/dL [facility] ([place]) Protein, pl 6.7 6.5 - 8.5 g/dL [facility] ([place]) Albumin 4.3 3.5 - 5.0 g/dL [facility] ([place]) Alk phos 27(L) 40 - 130 Units/L [facility] ([place]) ALT 11 7 - 45 Units/L [facility] ([place]) AST 15 10 - 45 Units/L [facility] ([place]) Blood 05/19/2024 11:4 4 AM CDT 05/19/2024 12:42 PM CDT Vito Choi MD LAB BLOOD ORDERABLES Final Result [facility] ([place] 1 [facility] Department [place] [address] * Screening Mammogram 2D Bilateral (12/31/2023) SCRIBED BI-RADS 1 Anatomical Region Laterality Modality Breast Bilateral Mammography Historical Provider MD DILLARD MAMMO PROCEDURES Edit ed Result - Final * Pap and High Risk HPV, reflex to Genotyping (09/06/2020) Swab 09/06/2020 Vito Choi MD LAB CYTOLOGY ORDERABL ES Final Result PATHOLOGY [id number] [place] [address] from Last 3 Months or Most Recently Relevant to Health Maintenance Insurance Care Teams Dividend Deposit Entry Clerk Relationship Specialty [place] [id number] [address] PCP - General Family Medicine 12/13/19 Tracy Wagoner DNP [address] [address] Nurse Practitioner Neurology 03/06/20 [place] [id number] [address] [address] Consulting Physician Otolaryngology 04/07/22
--- OUTSIDE RECORDS SUMMARY | 2024-08-17 00:54 | XMS_ITS | Clinical Summary ---
Author Organization [email or web address] Address [address] [place] [address] Care Team Providers Care Audio Visual Aide Name Role Phone Vito Choi MD Primary Care Provide r Source Comments [facility],non-owned Affiliates and Associated Physician Practices is amultiple site organization consisting of ambulatory clinics and hospital sitesin [place], [place], [place] and [place]. This disclosure is being madepursuant to the Care Everywhere program and may not contain all information available regarding this patient. Last updated 17.[email or web address] Allergies Active Allergy Reactions Criticality Noted Date Comments Sulfa Drugs Rash Medium 10/26/2015 Medications * Be aware that medications may not be up to date on this document. Alwaysverify current medications with the patient. diphenhydrAMINE (BENADRYL) 25 MG tablet Take by mouth every 4 hours as needed for Itching (migraine) Reported on 02/19/2016 Active benzonatate (TESSALON) 200 MG capsule Take 1 Cap by mouth 3 times daily as needed for Cough 30 Cap 0 6 Active Additional Information Patient not taking.Reported on 02/19/2016 predniSONE (DELTASONE) 10 MG tabletIndicatio ns:bronchitis Take three tablets PO BID x 3 days Reasons: bronchitis 18 Tab 7 Active benzonatate (TESSALON) 200 MG capsuleIndicati ons:Cough Take 1 Cap by mouth 3 times daily as needed for Cough Reasons: Cough 30 Cap 7 Active Social History Tobacco Use Types Packs/Day Years Used Date Smoking Tobacco: Never Comments Unknown Sex and Gender Information Value Date Recorded Sex Assigned at Not on file Legal Sex Female 2:26 PM CDT Gender Identity Not on file Sexual Orientation Not on file Last Filed Vital Signs Vital Sign Reading Time Taken Comments Blood Pressure 108/73 12/05/2020 5:10 PM CDT Pulse 61 12/05/2020 5:10 PM CDT Temperature 36.7 C (98.1 F) 12/05/2020 5:10 PM CDT Respiratory Rate 18 12/05/2020 5:10 PM CDT Oxygen Saturation 100% 12/05/2020 5:10 PM CDT Inhaled Oxygen Concentration - - Weight 77.1 kg (170 lb) 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 Height 154.9 cm (5' 1) 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 Body Mass Index 32.12 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 Plan of Treatment Health Maintenance Due Date Last Done Comments COLOGUARD (AGES 45-75) - COL ON CA SCREENING 1972 COLON MONITORING 1972 COLONOSCOPY - COLON CA SCREENING 1972 CT COLONOGRAPHY - COLON CA SCREENING 1972 Colorectal Cancer Screening 1972 FIT - COLON CA SCREENING 1972 FLEX SIG - COLON CA SCREENING 1972 LIPID TESTING 1972 MAMMOGRAM 1972 HIV SCREENING 07/09/1987 HEPATITIS C SCREENING 07/04/1990 DTAP/TDAP/TD VACCINES (1 - Tdap) 07/09/1991 HEPATITIS B VACCINE (1 of 3 - 19+ 3-dose series) 07/09/1991 PNEUMOCOCCAL VACCINE 50+ (1 of 1 - PCV) 2022 ZOSTER VACCINE (1 of 2) 2022 COVID-19 VACCINE (3 - 2023-2 5 season) 2023 06/04/2020, 05/12/2020 DEPRESSION SCREENING 02/17/2024 INFLUENZA VACCINE (Season Ended) 2024 11/17/2019, 03/10/2018 HIB VACCINE Aged Out No longer eligi ble based on patient's age to complete this topic HPV VACCINE Aged Out No longer eligi ble based on patient's age to complete this topic MENINGOCOCCAL (Group B) VACCINE SHARED DECISION-MAKING Aged Out No longer eligible based on patient's age to complete this topic MENINGOCOCCAL GROUPS A/C/Y/W VACCINE Aged Out No longer eligible b ased on patient's age to complete this topic Insurance Care Teams Audio Visual Aide Relationship Specialty [place] [id number] [place] [address] PCP - General Family Medicine 12/05/20
--- OUTSIDE RECORDS SUMMARY | 2024-08-17 00:54 | XMS_ITS | Clinical Summary ---
Author Organization [facility] Address [address] [place] [address] Care Team Providers Care Steam Box Hand Name Role Phone Vito Choi MD Primary Care Provide r Tracy Wagoner DNP Unavailable [phone] Aleksandar Coffey MD Unavailable [phone] Allergies Active Allergy Reactions Criticality Noted Date Comments Sulfa (Sulfonamide Antibiotics) Rash Medium Itch, redness, rash Medications cetirizine (ZyrTEC) 10 mg tablet Take 1 tablet (10 mg total) by mouth daily 2 018 Active fluticasone (FLONASE) 50 mcg/actuation nasal spray Administer 1 spray into each nostril daily Active rizatriptan BODY SHOP SUPERVISOR (MAXALT-BODY SHOP SUPERVISOR) 10 mg disintegrating tabletIndications: Migraine Take 1 [...] mouth once a week 12 capsule 3 025 Active meloxicam (MOBIC) 15 mg tablet Take 1 tablet (15 mg total) by mouth daily Take with food 30 tablet 025 Active methylPREDNISolone (MEDROL DOSEPACK) 4 mg DosepackIndication s:Acute nasopharyngitis Take as directed on package 1 packet 025 Active montelukast (SINGULAIR) 10 mg tabletIndications: Acute [...] expertise in treating migraines such as the [facility] headache clinic Additional consultation with Cardiology or ENT would also be reasonable Situational anxiety 09/06/2020 Assessment & Plan (05/19/2024 1:03 PM CDT): Dizziness could be psychosomatic from anxiety Continue hydroxyzine p.r.n. We could also consider cautious use of benzodiazepine therapy prn, although I would prefer to avoid this if possible Post-operative state 06/13/2020 GERD (gastroesophageal reflux disease) 05/06/202 0 Assessment & Plan (05/19/2024 1:03 PM CDT): [...] (05/16/2020): Added automatically from request for surgery [id number] Belching 05/03/2019 06/22/2019 Assessment & Plan (06/22/2019 [...] this can cause more issues with gas. Encounters Date Type Department Care Team Description 07/21/2024 3:15 PM CDT Office Visit [facility] Care at [place] [address] [place] [address] Iris Koenig NP Acute nasopharyngitis (Primary Dx) 06/27/2024 Orders Only [facility] Orthopedics and Sports Medicine at [address] [address] Kaylee Lopez PA 06/24/2024 Telephone [facility] [address] [place] [address] Olivia Rivers 06/09/2024 3:15 PM CDT Office Visit [facility] Orthopedics and Sports Medicine at [address] [address] Zia Tolbert MD Adhesive capsulitis of left shoulder (Primary Dx) 06/09/2024 Results Follow-Up Family [facility] at [address] [phone] Vito Choi MD CBC with auto differential, Comprehensive metabolic panel, Lipid panel, Additional followed-up results: 11 06/06/2024 9:08 AM CDT - 06/06/2024 11:59 PM CDT Hospital Encounter [facility] Center [address] [place] [address] Disorder of left rotator cuff Discharge Disposition: Discharge to home or self care 05/30/2024 3:30 PM CDT Office Visit [facility] Orthopedics and Sports Medicine at [address] [place] [address] Zia Tolbert MD Disorder of left rotator cuff (Primary Dx) 05/30/2024 Nurse Triage Family Care at [address] [place] [phone] Vito Choi MD Menorrhagia with irregular cycle (Primary Dx) 05/26/2024 Telephone [facility] Gastroenterology at [address] [place] [phone] Armani Troncoso DO 05/24/2024 Telephone [facility] Gastroenterology at [address] [place] [phone] Laci Aleman MD 05/20/2024 Telephone Family Care at [address] [place] [address] Vito Choi MD Call Back 05/19/2024 11:40 AM CDT Lab [facility] [address] [place] [address] Dizziness; Pure hypercholesterolemia; Anemia, unspecified type; Situational anxiety 05/19/2024 8:00 AM CDT Office Visit Family Care at [address] [place] [address] Vito Choi MD Annual physical exam (Primary Dx); Colon cancer screening; Dizziness; Migraine with aura and without status migrainosus, not intractable; Seasonal allergies; Gastroesophageal reflux disease, unspecified whether esophagitis present; Situational anxiety; Pure hypercholesterolemia; Anemia, unspecified type; Abnormality of lung on chest x-ray from Last 3 Months Immunizations Immunization Administration Dates Next Due Influenza, Quadrivalent, Spl it, Intramuscular 01/25/2019 Influenza, Quadrivalent, Spl it, Preservative Free, Intramuscular 12/04/2021,03/10/2018 Influenza, Unspecified 09/17/2023(Deferr ed: Patient Refused),05/19/2023(Deferred: Patient Refused),11/17/2019 Pfizer SARS-CoV-2 Monovalent Vaccination (12+ Yrs) PURPLE 06/04/2020,05/12/2020 Tdap 03/10/2018 Surgical History Surgery Date Site/Laterality Comments TONSILLECTOMY SECTION ABDOMINAL SURGERY abdominalpalsty TUBAL LIGATION Medical History Medical History Date Comments Asthma Asthma Anemia Anemia Hx Other Medical abdomnioplasty 2006 Hx Other Medical breast augmenta tion 2006 Hx Other Medical Tubal ligation 1999 Migraine Phalanx fracture, foot 09/2019 right 5th Inguinal hernia, left PONV (postoperative nausea a nd vomiting) Motion sickness GERD (gastroesophageal reflu x disease) Migraines Anxiety Unilateral inguinal hernia w ithout obstruction or gangrene 05/16/2020 Added automatically from [facility] for surgery [id number] Chronic idiopathic constipation 05/03/2019 Regurgitation of stomach contents 05/03/2019 Family History Medical History Relation Name Comments Anemia Other 1 Family history of Anemia; Asthma Other 2 Family history of Asthma; Depression Other 3 Family history of Depression; Cancer Other 4 Family history of Cancer; Relation Name Status Comments Other 1 Other 2 Other 3 Other 4 Social History Tobacco Use Types Packs/Day Years [...] on file 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 Gender Identity Not on file Sexual Orientation Not on file Obstetrics History Last Filed Vital Signs Vital Sign Reading [...] st Contact Info) Description 01/11/2025 8:30 AM PIPE CUTTER Hospital Encounter [address] [address] Armani Troncoso DO [address] [facility] [address] [place] [address] [place] [address] 01/11/2025 8:30 AM PIPE CUTTER - 01/11/2025 9:00 AM PIPE CUTTER Surgery [address] [address] Armani Troncoso DO [address] [facility] [address] [place] [address] [place] [address] COLONOSCOPY Scheduled Procedures Name Priority Associated Diagnoses Date/Ti me COLONOSCOPY Encounter for screening colonoscopy 01/11/2025 8:30 AM PIPE CUTTER Health Maintenance Due Date Last Done Comments Colon Cancer Screening-Colonoscopy 1970 Hepatitis C Screening 1970 Hepatitis B Screening 1990 Zoster Vaccine (1 of 2) 2022 Covid-19 Vaccine ( season) 2023 2021, 12/09/2020, 06/04/2020, Additional history exists Influenza Vaccine (Season Ended) 2024 12/04/2021, 11/17/2019, 01/25/2019, Additional history exists Breast Cancer Screening-Mammogram 12/30/2024 12/31/2023, 05/26/2016 Depression Screening 04/21/2025 04/21/2024, 05/19/2023, 02/04/2022, Additional history exists Regular Well Visit/Exam 18-64 05/19/2025 05/19/2024, 05/19/2023, 02/04/2022, Additional history exists Cervical Cancer Screening 09/06/2025 09/06/2020, DTaP/Tdap/Td Vaccine (2 - Td or Tdap) 03/10/2028 03/10/2018 Pneumococcal vaccine <65 Aged Out No longer eligible based on patient's age to complete this topic Medical Devices Implanted Type Area Power Technician Device Identifier Shelf Expiration Date Model / Serial / Lot [employer]/C R Bard [id number] Mesh Surg 3dmax [id number] Left Mid Large Inguinal Hernia - [id number] Implanted:Qty : 1 on 05/29/2020 by Dylan Moore MD at [facility] Left: Inguinal [employer] R Bard [id number] 01/13/2022 [id number] / / [id number] Procedures Procedure Name Priority Date/Time Associated Diagnosis [...] (BD Veritor) Presumptive Negative Presumptive Negative, Invalid [facility] Nasal 07/21/2024 3:41 PM CDT Iris Koenig NP POINT OF CARE TEST ORDERABLE S Final Result [id number] [address] [place] [address], [facility] * POCT influenza A/B (07/21/2024 3:40 [...] 2:09 PM - Electronically signed by Dago MATHUR: KEVAN Report ID: [id number] Reading Location: [id number] Procedure Note Dago Drummond MD - 06/07/2024 [...] Dago Drummond M.D. MF: KEVAN Report ID: [id number] Reading Location: [place] [address] [place] Zia Tolbert MD IMG MRI PROCEDURES Final Resu lt * eGFR (05/19/2024 11:44 AM CDT) Pathologist [facility] eGFR >90 >=60 mL/min/1. 73 m2 Comment: [...] Choi MD LAB BLOOD ORDERABLES Final Result [facility] ([place]) 1 [facility] Department of Laboratories [place], [place] [id number] * Differential, auto (05/19/2024 11:44 AM CDT) Neutrophil abs 2.88 1.50 - 6.50 K/cumm Imm gran abs 0.01 0.00 - 0.10 K/cumm [facility] ([place]) Lymphocyte abs 1.55 0.80 - 3.30 K/cumm [facility] ([place]) Monocyte abs 0.38 0.20 - [...] LAB BLOOD ORDERABLES Final Result [facility] ([place]) [address] Department [place] [address] * Thyroid Function [place] (05/19/2024 11:44 AM CDT) [facility] TSH 1.57 0.30 - 4.20 mcIUnit/mL Blood 05/19/2024 11:4 4 AM CDT 05/19/2024 12:42 PM CDT Vito Choi MD LAB BLOOD ORDERABLES Final Result [facility] ([place]) 1 [place] [address] * (ABNORMAL) Iron profile w/ IBC (05/19/2024 11:44 AM CDT) [facility] Iron 30(L) 35 - 145 mcg/dL TIBC 362 250 - 400 mcg/dL [facility] ([place]) Transferrin saturation 8(L) 20 - 50 % [facility] ([place]) Blood 05/19/2024 11:4 4 AM CDT 05/19/2024 12:42 PM CDT Vito Choi MD LAB BLOOD ORDERABLES Final Result [facility] ([place]) 1 [facility] [place] [address] * (ABNORMAL) CBC with auto differential (05/19/2024 11:44 AM CDT) [facility] WBC 4.92 3.80 - 9.90 K/cumm Hgb 9.8(L) 11.9 - 15.5 g/dL [facility] ([place]) Hct 31.2(L) 35.6 - 45.5 % [facility] ([place]) Plt 379 150 - 400 K/cumm [facility] ([place]) MPV 9.6 9.1 - 12.3 fL [facility] ([place]) RBC 3.69(L) 3.90 - 5.20 M/cumm [facility] ([place]) MCV 84.6 81.3 - 96.4 fL [facility] ([place]) MCH 26.6(L) 27.1 - 33.3 pg [facility] ([place]) MCHC 31.4(L) 32.3 - 35.7 g/dL [facility] ([place]) RDW CV 15.1(H) 11.1 - 14.9 % [facility] ([place]) RDW SD 46.1 35.7 - 48.1 fL [facility] ([place]) NRBC abs 0.00 0.00 - 0.01 K/cumm [facility] ([place]) Blood 05/19/2024 11:4 4 AM CDT 05/19/2024 12:42 PM CDT Vito Choi MD LAB BLOOD ORDERABLES Final Result Performing Organization Address City/[facility]/ZIP Co de Phone Number [facility] ([place]) 1 [facility] [employer] [place] [address] * (ABNORMAL) Vitamin D 25 hydroxy (05/19/2024 11:44 AM CDT) Vitamin D 25-OH 22(L) 30 - 80 ng/mL Blood 05/19/2024 11:4 4 AM CDT 05/19/2024 12:42 PM CDT Vito Choi MD LAB BLOOD ORDERABLES Final Result [facility] ([place]) 1 [facility] [place] [address] * Prolactin (05/19/2024 11:44 AM CDT) Prolactin 13.5 4.8 - 23.3 ng/mL Comment:Testing performed by : [facility], [address] [place] [address], [place]., [address] Blood 05/19/2024 11:4 4 AM CDT 05/19/2024 4:12 PM CDT Vito Choi MD LAB BLOOD ORDERABLES Final Result [facility]) 1 [facility] [place] [address] * Progesterone (05/19/2024 11:44 AM CDT) Progesterone 0.18 ng/mL Comment: Interpretive Data Males: <0.15 ng/mL Females: Follicular <0.20 ng/mL Ovulation <4.1 ng/mL Luteal 4.1 - 14.5 ng/mL 1st Trimester 11.0 - 44.0 ng/mL 2nd Trimester 25.0 - 83.0 ng/mL 3rd Trimester 59.0 - 214.0 ng/mL Postmenopausal <0.13 ng/mL Current interpretive data was last revised 2021. Testing performed by: [facility], [address] [place] [address]., [address] Blood 05/19/2024 11:4 4 AM CDT 05/19/2024 4:38 PM CDT Vito Choi MD LAB BLOOD ORDERABLES Final Result Performing Organization Address City/[facility] Co de Phone Number [facility] Blood[facility]IAN[facility]) 1 [facility] [place] [address] * Estradiol (05/19/2024 11:44 AM CDT) Estradiol 332.0 pg/mL Comment: Interpretive Data Males: 11 43 pg/mL Females: Premenopausal: 31 533 pg/mL Postmenopausal: < 50 pg/mL Patients treated with Fluvestrant (Faslodex) should be tested using an alternate assay such as LC-MS due to potential for cross-reactivity. Estradiol varies widely throughout the menstrual cycle. Current interpretive data was last revised 2023. Testing performed by: [facility], [address] [place] [address]., [address] Blood 05/19/2024 11:4 4 AM CDT 05/19/2024 4:38 PM CDT Vito Choi MD LAB BLOOD ORDERABLES Final Result [facility] ([place]) 1 [facility] [place] [address] * LH (05/19/2024 11:44 AM CDT) LH 2.8 IUnits/L Comment: Interpretive Data Males: Adults: 1.7 - 8.6 IUnits/L Females: Follicular: 2.4 - 12.6 IUnits/L Ovulation: 14.0 - 95.6 IUnits/L Luteal: 1.0 - 11.4 IUnits/L Postmenopausal: 7.7 - 58.5 IUnits/L Current interpretive data was last revised on 2018. Testing performed by: [facility], [address] [place]., [address] Blood 05/19/2024 11:4 4 AM CDT 05/19/2024 4:38 PM CDT Vito Choi MD LAB BLOOD ORDERABLES Final Result Performing Organization Address City/[facility] Co de Phone Number [facility] ([place]) [address] [place] [address] [place] [address] * Follicle stimulating hormone (05/19/2024 11:44 AM CDT) FSH 3.6 IUnits/L Comment: Interpretive Data Male: Adults: 1.5 - 12.4 IUnits/L Female: Follicular: 3.5 - 12.5 IUnits/L Ovulation: 4.7 - 21.5 IUnits/L Luteal: 1.7 - 7.7 IUnits/L Postmenopausal: 25.8 - 134.8 IUnits/L Current interpretive data was last revised 2015. Testing performed by: [facility], 1 [facility], [place]., [address] Blood 05/19/2024 11:4 4 AM CDT 05/19/2024 4:38 PM CDT Vito hCoi MD LAB BLOOD ORDERABLES Final Result [facility] ([place]) 1 [facility] [place] [address] * Vitamin B12 (05/19/2024 11:44 AM CDT) Vitamin B12 408 230 - 1,250 pg/mL Blood 05/19/2024 11:4 4 AM CDT 05/19/2024 12:42 PM CDT Vito Choi MD LAB BLOOD ORDERABLES Final Result Performing Organization Address City/[facility] Co de Phone Number [facility] ([place]) 1 [facility] [place] [address] * (ABNORMAL) Lipid panel (05/19/2024 11:44 AM [...] Choi MD LAB BLOOD ORDERABLES Final Result [facility] ([place] 1 [facility] Department [place] [address] * (ABNORMAL) Comprehensive metabolic panel (05/19/2024 11:44 AM CDT) Sodium 137 135 - 145 mmol/L Potassium, pl 4.1 3.3 - 4.9 mmol/L [facility] ([place]) Chloride 103 97 - 110 mmol/L [facility] ([place]) CO2 24 22 - 32 mmol/L [facility] ([place]) Anion gap 10 2 - 15 mmol/L [facility] ([place]) BUN 20 6 - 25 mg/dL [facility] ([place]) Creatinine 0.54(L) 0.60 - 1.10 mg/dL [facility] ([place]) Glucose 80 70 - 199 mg/dL [facility] ([place]) Comment: Interpretive Data Fasting glucose [...] 9.3 8.5 - 10.3 mg/dL [facility] ([place]) Bilirubin, total 0.3 0.1 - 1.2 mg/dL [...] MD LAB BLOOD ORDERABLES Final Result [facility] ([place]) [address] [place] [address] Department [place] [address] * Screening Mammogram 2D Bilateral (12/31/2023) SCRIBED BI-RADS 1 Anatomical Region Laterality Modality Breast Bilateral Mammography Historical Provider MD DILLARD MAMMO PROCEDURES Edit ed Result - Final * Pap and High Risk HPV, reflex to Genotyping (09/06/2020) Swab 09/06/2020 Vito Choi MD LAB CYTOLOGY ORDERABL ES Final Result PATHOLOGY [address] [place] [address] from Last 3 Months or Most Recently Relevant to Health Maintenance Insurance [facility] Address: [place] [address] [facility] [place] [address] [facility] [employer] Address: [address] [place] [address] Care Teams Steam Box Hand Relationship Specialty [place] [id number] [address] PCP - General Family Medicine 12/13/19 Tracy Wagoner DNP [address] [address] Nurse Practitioner Neurology 03/06/20 [place] [address] [address] Consulting Physician Otolaryngology 04/07/22
--- OUTSIDE RECORDS SUMMARY | 2024-08-17 00:54 | XMS_ITS | Encounter Summary ---
Author Organization [employer] Address [address] [place] [address] Care Team Providers Care Electrical Linesworker Name Role Phone Crystal Noguera MD Primary Care Provider [phone] Encounter Details Date Type Department Care Team (Late st Contact Info) Description 09/12/2003 Outpatient Historical [facility] Internal Medicine [address] [place] [address] Crystal Noguera MD [address] [place] [address] Social History Tobacco Use Types Packs/Day Years Used Date Smoking Tobacco: Never Assessed Comments Unknown Sex and Gender Information Value Date Recorded Sex Assigned at Not on file 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
[2024-08-17] MEDS: ACETAMINOPHEN 500 MG TABLET 1000 MG PO ×3 (06:21→17:55)
[2024-08-17] MEDS: LACTATED RINGERS 1,000 ML 30 ML IV CONT ×2 (06:55→10:17)
--- NOTE | 2024-08-17 06:56 | WPDANESEPPF ---
Anes - Initial Pre Proc Eval Procedure: Operation Date: 08/17/24 07:30 Proposed Procedures p Robotic Laparoscopic Assisted Total Vaginal Hysterectomy with Bilateral Salpingectomy - Karan Davis MD Date/Time: 08/17/24 06:56 Surgeon: Karan Davis MD Pre Op Diagnosis: menorrhaghia, dysmenorrhea Patient Data Age: 54 Gender: F Height: 1.54 m Weight: 50.6 kg Last Vital Signs Temp 36.5 C 08/17/24 06:08 Pulse 62 08/17/24 06:08 Resp 18 08/17/24 06:08 BP 108/75 08/17/24 06:08 Pulse Ox 100 08/17/24 06:08 O2 Del Method Room Air 08/17/24 06:08 Allergies Allergy/AdvReac Type Severity Reaction Status Date / Time Sulfa (Sulfonamide Allergy Unknown Rash Verified 08/11/24 08:16 Antibiotics) Home Medications ?Medication ?Instructions ?Recorded ?Confirmed ?Type galcanezumab-gnlm 120 mg/mL 120 mg subcut MONTHLY 06/01/24 08/11/24 History subcutaneous syringe (Emgality) ketorolac 10 mg tablet 10 mg PO Q8H 06/01/24 08/11/24 History meloxicam 7.5 mg tablet 7.5 mg PO DAILY 06/01/24 08/11/24 History cetirizine 10 mg tablet (24Hour 10 mg PO DAILY PRN allergy symptoms 08/11/24 08/11/24 History Allergy) fluticasone propionate 50 1 spray intranasal Q12H PRN 08/11/24 08/11/24 History mcg/actuation nasal allergy symptoms spray,suspension (24 Hour Allergy Relief) tirzepatide 5 mg/0.5 mL 0.25 mg subcut WEEKLY 08/11/24 08/11/24 History subcutaneous pen injector (Mounjaro) Patient hx anesthesia problems: none Family hx anesthesia problems: none Results Review: All pre-operative results and documents have been reviewed as part of the pre-operative evaluation. [facility] Past Medical History Medical History Shoulder injury Migraine Surgical History Surgical History Hx of breast augmentation Hx of abdominoplasty Hx of hernia repair Family History Family History Mother Cervical cancer Depression Anxiety Diabetes mellitus Sibling Anxiety Depression Social History Social History Smoking status: Never smoker Alcohol intake: current Substance use: never Living arrangements: with family Spiritual care concerns: No Anes - Eval Final PreProcedure Day of Procedure 08/17/24 06:56 Patient weight: normal Heart: regular rate and rhythm Lungs: clear to auscultation Airway: Mallampati scale class 1 Neurological: alert and oriented Last oral intake: >/= 8 hours ASA classification: II Emergent: no Anesthetic plan: proceed Anesthesia type and monitoring: general ETT and standard monitoring Results Review: All pre-operative results and documents have been reviewed as part of the pre-operative evaluation. Informed Consent: The patient's anesthetic plan and its attendant risks and benefits were discussed with the patient/family/POA. Questions were solicited and answers provided to the satisfaction of the patient/family/POA.
[2024-08-17] MEDS: KETOROLAC 15 MG/ML VIAL (*BKC) IV PUSH (07:05)
[2024-08-17] MEDS: SCOPOLAMINE 1 MG PATCH 1 PATCH TRANSDERM (07:10)
--- NOTE | 2024-08-17 07:14 | WPDHPUPDATE1 ---
History and Physical Update Update Date/Time: 08/17/24 07:14 History and Physical has been reviewed, including an updated exam of the patient. There are NO changes in the patient's condition. Risks, benefits, and alternatives have been discussed and questions answered. Patient agrees to proceed with procedure.
[2024-08-17] MEDS: ceFAZolin 2 GM/D5W 50 ML 2 GM/50 ML BAG IVPB (07:28)
[2024-08-17 07:38] LABS: BEDSIDEPREGUCG Negative (Negative)
[2024-08-17] MEDS: BUPivacaine HCL 0.5% 10 ML AMP 20 ML INFILTRATE (08:11)
--- NOTE | 2024-08-17 09:19 | S_PTH ---
PATIENT: Joi Ashley LOC: [facility] U#:[id number] AGE/SX: 54/F ROOM: RE08/17/[address]: Karan Davis MD : 1970 BED: DIS: 08/18/2024 SPEC #: [id number] RECD: 08/17/24 13:17 STATUS: RALPH REQ #: [id number] TRUE: 08/17/24 09:[address]: Karan Davis DEPT: [facility] Surgical RECD BY: Danny Dixon Tissues: A - Uterus Procedures: Hematoxylin and Eosin Stain Gross and Microscopic Level 5
--- NOTE | 2024-08-17 10:04 | W.PM.PROC2 ---
Procedure Note - Detailed Date of Procedure 08/17/24 Pre-op Diagnosis menorrhaghia, dysmenorrhea Post-op Diagnosis Same Procedure Performed Robotic assisted laparoscopic total vaginal hysterectomy with bilateral salpingectomy and removal of left ovary. Surgeon Karan Davis MD Nursing Secretary Carolee Anesthesia General Indications Abnormal uterine bleeding, normal endometrial biopsy, she has opted for definitive treatment with hysterectomy. Findings Normal right ovary and normal bilateral fallopian tubes, normal uterus, left ovary with dark cyst on periphery consistent with possible endometrioma. Description of Procedure After informed consent was obtained she was taken to the operating room and general endotracheal anesthesia was administered. She was placed in low lithotomy position. An exam under anesthesia was performed. Uterus mildly enlarged no adnexal masses palpated. She was and prepped and draped in sterile fashion. Tavares catheter placed in bladder. Attention was turned to the vagina speculum was inserted. Single-tooth tenaculum placed on anterior lip of the cervix the uterus sounded to 8 cm. The cervix was dilated to a 8 Koenig dilator. A size 10 uterine manipulator was inserted and secured. A size 3.0 colp cup was secured in the vagina. Then attention was turned to the abdomen with new sterile gloves. .5% marcaine injected subcutaneously. An incision was made horizontal 2 cm above the umbilicus. A veress needle was inserted, confirmation obtained with normal peritoneal pressures. A Pneumoperitoneum of 15 mm per mercury was obtained. She was placed in steep Trendelenburg position. A small incision was made approximately 6 cm lateral to the port on the left side of the port. A size 8mm robotic port was inserted under laparoscopic visualization into the abdomen on the left side. The same was done on the right side and superior and medial to the right incision. The robotic arms were attached. Attention was turned to surgery console. The right round ligament was ligated. The broad ligament was dissected anteriorly. The right side of the bladder was dissected from the lower uterine segment and upper cervix. The right fallopian tube was ligated from mesosalpinx. The right ovarian ligament was ligated with the vessel sealer. The a posterior leaf of the broad ligament was further dissected. The ascending uterine vessels on the right were cauterized. The uterine vessels were ligated. Attention was turned to the left round ligament which was ligated and the anterior leaf of the broad ligament was dissected anteriorly. The rest of the vesicouterine peritoneum was dissected from the uterus. Once the bladder was dissected below the colp cup then the posterior leaf of the broad ligament was further dissected. Due to the abnormal appearance of the left ovary, decision was made to remove the left ovary. The infundibulopelvic ligament was ligated. The posterior leaf of broad ligament dissected. The ascending uterine vessels were ligated. The uterine arteries were ligated. The cardinal ligaments were ligated. This was done on both sides. An incision was made anterior colpotomy incision was made and this was carried around until the cervix was removed from the vagina. The uterus and cervix were removed through the vagina. The vaginal cuff was closed in a running fashion with 0 V lock suture. Hemostasis was noted. The pelvis was irrigated. Hemostasis noted. Hemostatic was applied in the pelvis. The patient was taken out of Trendelenburg position. The pneumoperitoneum was released and the ports were removed. The skin incisions were closed with 4 O Vicryl and dermabone. The patient was extubated in operating room. The sponge count was correct x2. Patient tolerated procedure well and was taken to recovery in stable condition. Estimated Blood Loss 20 Drains No Packing No Pathology Yes (uterus with cervix and right and left fallopian tube and left ovary) Complications No immediate complications Condition Stable Disposition PACU [facility] Billing Surgery - Charge Forward: Surgery Billing
[2024-08-17] MEDS: ONDANSETRON INJ 4 MG/2 ML VIAL IV PUSH (10:40)
[2024-08-17] MEDS: fentaNYL CITRATE INJ (*CRX) 100 MCG/2 ML VIAL 25 MCG IV PUSH ×2 (11:01→11:15)
[2024-08-17] MEDS: SIMETHICONE 80 MG TAB.CHEW PO ×2 (12:14→17:19)
[2024-08-17] MEDS: KETOROLAC 30 MG/ML VIAL (*BKC) IV PUSH ×2 (12:14→17:55)
[2024-08-17] MEDS: DEXTROSE 5%/0.45% SOD CHL 1,000 ML 125 ML IV CONT ×2 (12:15→21:56)
[2024-08-17] MEDS: HYDROcodone/acetaminophen (*CRX) 5-325 MG TABLET 1 TAB PO ×3 (13:20→21:57)
[2024-08-17] MEDS: ceFAZolin 1 GM/NS 50 ML 1 GM/50 ML BAG IVPB ×2 (14:00→21:56)
[2024-08-17] MEDS: SOLIFENACIN 5 MG TABLET 10 MG PO (14:00)
[2024-08-17] MEDS: DOCUSATE SODIUM 100 MG CAPSULE PO (17:18)
[2024-08-17] MEDS: ZOLPIDEM TARTRATE (*CRX) 5 MG TABLET PO (21:57)
[2024-08-18] VITALS: BP 78/48; PULSE 66; RESP 18; TEMP 36.8; O2SAT 96
[2024-08-18] MEDS: ACETAMINOPHEN 500 MG TABLET 1000 MG PO ×2 (00:32→07:16)
[2024-08-18] MEDS: KETOROLAC 30 MG/ML VIAL (*BKC) IV PUSH (00:32)
[2024-08-18] MEDS: ceFAZolin 1 GM/NS 50 ML 1 GM/50 ML BAG IVPB (05:38)
[2024-08-18 05:45] VITALS: BP 81/53; PULSE 63; RESP 18; TEMP 36.9; O2SAT 98
[2024-08-18] MEDS: HYDROcodone/acetaminophen (*CRX) 5-325 MG TABLET 1 TAB PO ×2 (05:45→11:46)
[2024-08-18] MEDS: SIMETHICONE 80 MG TAB.CHEW PO ×2 (07:16→11:46)
[2024-08-18] MEDS: IBUPROFEN 600 MG TABLET PO (07:16)
[2024-08-18 08:10] VITALS: BP 83/57; PULSE 65; RESP 18; TEMP 36.5; O2SAT 100
[2024-08-18] MEDS: SOLIFENACIN 5 MG TABLET 10 MG PO (08:29)
[2024-08-18] MEDS: DOCUSATE SODIUM 100 MG CAPSULE PO (08:29)
[2024-08-18 10:35] LABS: Hematocrit 28.2 % (37.0-47.0); Hemoglobin 9.1 g/dL (12.0-15.0); Mean Corpuscular HGB Conc 32.3 g/dl (32-36); Mean Corpuscular Hemoglobin 29.8 pg (26-34); Mean Corpuscular Volume 92.5 fl (80-100); Platelet Count Result 259 k/mm3 (150-375); Red Blood Count 3.05 M/mm3 (4.2-5.4); White Blood Count 6.4 K/mm3 (4.5-10.0)
--- NOTE | 2024-08-18 12:41 | P.PNOB_ITS ---
CLAIM REVIEW MEDICAL DIRECTOR - A/P Assessment and plan (1) Hysterectomy planned: Status: Acute Assessment and Plan: postop day 1. She is doing well. Good urine output. Her blood pressures are consistent with pre-surgery blood pressures. Hypovolemic symptoms. CBC checked. She has mild anemia. Though she did have a heavy. Starting 2 days before the surgery. No signs of active bleeding. Will discharged home. Instructed to take iron pills. Discharge precautions discussed. She will follow-up next week. Instructed on symptoms to call for. Postoperative Procedures: Procedures Operation Date: 08/17/24 07:30 Actual Procedure Side Surgeon p Robotic Laparoscopic Assisted Total Vaginal Hysterectomy with Bilateral Salpingectomy and Left Oophorectomy Bilateral Karan Davis MD Time Spent With Patient Time: Total time spent is greater than 50% in coordination of care (as documented) at patient's floor/unit and/or counseling patient: Time with patient: less than 15 minutes CLAIM REVIEW MEDICAL DIRECTOR- PN:Subj Post-Op Subjective Date/time seen: 08/18/24 12:41 Interval history: She reports adequate pain control. She has ambulated in the room without problems. Denies any lightheadedness or dizziness. Tolerating regular food. Positive flatus. Scant spotting. Exam 2 Const: General: comfortable Orientation/consciousness: patient oriented x3 Resp: Effort & Inspection: normal respiratory effort GI: Other: incisions intact soft nontender nondistended Extrem: General: normal to inspection and no calf tenderness CLAIM REVIEW MEDICAL DIRECTOR - PN: Obj Data Vital Signs Vital Signs: Vital Signs - 24 hr 08/17/24 16:10 08/17/24 16:10 08/17/24 19:45 Temperature 97.2 F L 97.6 F Pulse Rate 69 74 Respiratory Rate 18 18 Blood Pressure 81/45 L 80/47 L Pulse Oximetry 100 99 Oxygen Delivery Room Air 08/17/24 19:45 08/18/24 00:00 08/18/24 05:45 Temperature 98.3 F 98.5 F Pulse Rate 66 63 Respiratory Rate 18 18 Blood Pressure 78/48 L 81/53 L Pulse Oximetry 96 98 Oxygen Delivery Room Air 08/18/24 07:10 08/18/24 08:10 Temperature 97.7 F Pulse Rate 65 Respiratory Rate 18 Blood Pressure 83/57 L Pulse Oximetry 100 Oxygen Delivery Room Air Intake/Output Intake/Output: Intake & Output 06/08/16/24 08/17/24 08/18/24 23:59 23:59 23:59 23:59 Intake Total 2475 0 Output Total 0940 1450 Balance -225 -1450 Meds/Results Medications: Active Medications Generic Name Dose Route Start Last Admin Trade Name Freq PRN Reason Stop Dose Admin Acetaminophen 1,000 mg 08/17/24 12:00 08/18/24 07:16 Acetaminophen 500 Mg Tablet PO 500 mg Q6HR MERLYN Administration Hydrocodone Bitart/Acetaminophen 1 tab 08/17/24 10:21 08/18/24 11:46 Hydrocodone/Acetaminophen (*Crx) 5-325 Mg Tablet PO 1 tab Q3H PRN Administration Pain Rated 4-6 Hydrocodone Bitart/Acetaminophen 1 tab 08/17/24 10:21 Hydrocodone/Acetaminophen (*Crx) 10-325 Mg Tablet PO Q3H PRN Pain Rated 7-10 Docusate Sodium 100 mg 08/17/24 17:00 08/18/24 08:29 Docusate Sodium 100 Mg Capsule PO 100 mg BID MERLYN Administration Fentanyl Citrate 25 mcg 08/17/24 06:57 08/17/24 11:15 Fentanyl Citrate Inj (*Crx) 100 Mcg/2 Ml Vial IV PUSH 25 mcg Q2M PRN Administration Pain Lactated Ringer's 1,000 mls @ 30 mls/hr 08/17/24 07:00 08/18/24 07:18 Lr - Lactated Ringers Iv IV CONT Not Given .Q24H MERLYN Lactated Ringer's 1,000 mls @ 30 mls/hr 08/17/24 07:00 08/18/24 07:18 Lr - Lactated Ringers Iv IV CONT Not Given .Q24H MERLYN Dextrose/Sodium Chloride 1,000 mls @ 125 mls/hr 08/17/24 10:25 08/18/24 10:53 Dextrose 5% Sodium Chloride 0.45% IV CONT Not Given .Q8H MERLYN Ibuprofen 600 mg 08/17/24 12:00 08/18/24 07:16 Ibuprofen 600 Mg Tablet PO 600 mg Q6HR MERLYN Administration Morphine Sulfate 4 mg 08/17/24 10:21 Morphine Sulfate (*Crx) 4 Mg/Ml Inj IV PUSH Q4H PRN Breakthrough Pain Rated 7-10 or NPO Naloxone HCl 0.1 mg 08/17/24 10:21 Naloxone Hcl 0.4 Mg/Ml Vial IV PUSH Q2M PRN Respiratory rate less than 10 Ondansetron HCl 4 mg 08/17/24 06:57 08/17/24 10:40 Ondansetron Inj 4 Mg/2 Ml Vial IV PUSH 4 mg ONCE PRN Administration Nausea Ondansetron HCl 4 mg 08/17/24 10:21 Ondansetron Inj 4 Mg/2 Ml Vial IV PUSH Q6H PRN Nausea And Vomiting Oxycodone HCl 5 mg 08/17/24 06:57 Oxycodone Hcl (*Crx) 5 Mg Tab Ir PO ONCE PRN Pain Senna/Docusate Sodium 2 tab 08/17/24 21:00 08/18/24 06:56 Senna/Docusate Sodium Tablet PO Not Given HS MERLYN Simethicone 80 mg 08/17/24 12:00 08/18/24 11:46 Simethicone 80 Mg Tab.Chew PO 80 mg TIDWM MERLYN Administration Solifenacin 10 mg 08/17/24 13:00 08/18/24 08:29 Solifenacin 5 Mg Tablet PO 10 mg DAILY MERLYN Administration Zolpidem Tartrate 5 mg 08/17/24 16:08 08/17/24 21:57 Zolpidem Tartrate (*Crx) 5 Mg Tablet PO 5 mg HS PRN Administration Insomnia Labs 08/18/24 10:25 Labs: Laboratory Results - last 24 hr 08/18/24 10:25 WBC 6.4 RBC 3.05 L Hgb 9.1 L Hct 28.2 L MCV 92.5 MCH 29.8 MCHC 32.3 RDW 15.6 H Plt Count 259 MPV 9.0
--- NOTE | 2024-08-18 12:49 | PM.DS ---
DS: Admitting Diagnosis Discharge Date 08/18/2024 Admitting Diagnosis menorrhagia DS: Discharge Diagnosis Discharge Diagnosis (1) Abnormal uterine bleeding (AUB): Code(s): N93.9 - Abnormal uterine and vaginal bleeding, unspecified Status: Acute (2) Hysterectomy planned: Status: Acute DS: Summary Hospital Course Reason for hospitalization: planned hysterectomy Hospital Course: she was admitted for scheduled robotic hysterectomy. She had an uncomplicated hysterectomy. On day of surgery she was doing well. Had adequate pain control. Rate regular food. On postop day 1 she was doing well had adequate pain control tolerating regular food ambulating well. Her blood pressures were consistent with her pre surgery blood pressure. she has routine blood pressures 90s over 50s to 60s this was consistent. During this hospital stay. She had good urine output normal pulse. A hemoglobin today was 9.1/28, she did have a heavy period that started two days before surgery. No hypovolemic symptoms. Discharge to home on post op day 1, discharge precautions discussed. Follow up scheduled for next week. Status at Discharge Functional status at discharge: independent ambulation Time Spent with Patient Time attestation: Total time spent providing and/or coordinating discharge services: Exam Const: General: comfortable Orientation/consciousness: patient oriented x3 Resp: Effort & Inspection: normal respiratory effort GI: Other: incisions intact soft nontender nondistended Extrem: General: normal to inspection and no calf tenderness DS: Data Data Completed and Pending Completed studies during hospitalization: Pending at discharge 08/17/24 09:19 Surgical [PTH] Routine Labs on day of discharge: Labs from last 24 hours 08/18/24 10:25 WBC 6.4 RBC 3.05 L Hgb 9.1 L Hct 28.2 L MCV 92.5 MCH 29.8 MCHC 32.3 RDW 15.6 H Plt Count 259 MPV 9.0 Discharge Plan Discharge Patient Disposition: Home Discharge Instructions: she was instructed to take home meds as usual. Recommend MiraLax daily until she is not taking the pain medication. She may take [id number] ibuprofen 600 mg every 6 hours as needed. She can take Tylenol follow package instructions. she should take [id number] ferrous sulfate 325 mg once a day. Patient Instructions: Hysterectomy (DC) Patient Language: Vincentian Follow-up/Referrals: Karan Davis MD [Physician] - 08/24/24 8:45 am Discharge Medications: New hydrocodone-acetaminophen 5-325 mg Tablet 1 tablet PO Q3H PRN (Reason: Pain Rated 4-6) Qty: 20 0RF No Action meloxicam 7.5 mg tablet 7.5 mg PO DAILY Emgality Syringe 120 mg/mL syringe 120 mg subcut MONTHLY ketorolac 10 mg tablet 10 mg PO Q8H Patient Comments: Takes as needed for severe migrane. Rx Instructions: maximum total duration of 5 days from all oral, intranasal, or parenteral formulations cetirizine [24Hour Allergy] 10 mg tablet 10 mg PO DAILY PRN (Reason: allergy symptoms) fluticasone propionate [24 Hour Allergy Relief] 50 mcg/actuation spray,suspension 1 spray intranasal Q12H PRN (Reason: allergy symptoms) Rx Instructions: administer into each nostril Mounjaro 5 mg/0.5 mL pen injector 0.25 mg SUBCUT WEEKLY Patient Comments: Mondays
== END 2024-08-18 13:20 | disposition home or self-care (01) ==
LOC: ANHSURGERY 07:08 → ANHOB2 12:56
PROVIDERS: Visit Provider Obstetrics & Gynecology
PROC: (CPT 58552; principal; 2024-08-17 07:30)
DX: N92.0 Excessive and frequent menstruation with regular cycle (principal); N94.6 Dysmenorrhea, unspecified; N80.03 Adenomyosis of the uterus; D27.1 Benign neoplasm of left ovary; N88.8 Other specified noninflammatory disorders of cervix uteri; D25.1 Intramural leiomyoma of uterus; N83.8 Other noninflammatory disorders of ovary, fallopian tube and broad ligament
CPT/HCPCS: 58552; S2900; 36415; 85027; 88307; 99199; A9270; J0690; J1100; J1171; J1885; J2250; J2405; J2704; J3010; J7030; J7120